=== PATIENT | male | born 1955 | race Caucasian/White ===

== ENCOUNTER 2025-06-24 15:47 | Emergency (ER) | payer OTHER, SELFPAY ==
--- OUTSIDE RECORDS SUMMARY | 2024-07-27 08:00 | XMS_ITS ---
Author Organization [facility] Address [address] [place] [address] Care Team Providers Care Rail Doweling Machine Operator Name Role Phone Nitish Alcocer MD Primary Care Provider Allergies Allergen (clinical drug ingredient) Drug/Non Drug Allergy documented on EMR Reaction Allergy Type Onset Date Status lisinopril lisinopril (uncoded) cough Allergy Active semaglutide Ozempic stomach upset Drug Allergy A ctive REASON FOR VISIT suspected prostatitis Medications Medication SIG (Take, Route, Frequency, Duration) Notes Start Date End Date Status Citalopram Hydrobromide 20 MG TAKE ONE TABLET BY MOUTH ONE TIME DAILY; Duration: 90 07/27/2024 Active Tamsulosin HCl 0.4 MG TAKE ONE CAPSULE B Y MOUTH ONE TIME DAILY; Duration: 90 07/27/2024 Active Flonase 50 MCG/DOSE 2 spray in each nostril Nasally Once a day at the bedtime; Duration: 30 days as needed 07/27/2024 Not-Taking amLODIPine Besylate 10 MG TAKE ONE TABLET BY MOUTH ONE TIME DAILY; Duration: 90 days 07/27/2024 Active Fexofenadine-Pseudoeph ed ER 60-120 MG 1 tablet as needed Orally Twice a day; Duration: 30 days as needed 07/27/2024 Not-Taking Atorvastatin Calcium 10 MG TAKE ONE TABLET BY MOUTH ONE TIME DAILY Orally Once a day; Duration: 90 days 07/27/2024 Active Ozempic (0.25 or 0.5 MG/DOSE) 2 MG/3ML 1 mg Subcutaneous weekly; Duration: 30 days 07/27/2024 Active Aspirin 81 MG 1 tablet Orally Once a day 07/27/2024 Active Valsartan 160 MG 1 tablet Orally twic e daily 07/27/2024 Active Eliquis 5 MG TAKE TWO TABLETS BY MOUTH TWICE A DAY FOR 7 DAYS THEN TAKE ONE TABLET BY MOUTH TWICE A DAY Oral; Duration: Not Available days 12/14/2023 Active Social History Tobacco Use: Social History Observation Description Date Details (start date - stop date) Never Smoker NA - NA Tobacco Use/Smoking Question Answer Notes Are you a nonsmoker Tobacco use other than smoking: Question Answer Notes Are you an other tobacco user? No Section Notes: Originally from [place]. Full-time resident of [place]. 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 Vital Signs Height 69 inches 07/27/2024 Encounters Encounter Location Date Provider Diagnosis [facility] [address] [address] 07/27/2024 Nitish Alcocer Plan Of Treatment No Information Progress Notes * ANTIONE LDOB:1955 (69 yo M)Acc No.[id number]:07/27/2024 Patient: ANTIONE WALDEN Provider: Milo Alcocer MD :1955 A ge:69 Y S ex:Male Date:07/27/2024 Address:[address] [place] [address] Structured Data:General cons ent obtained : Written; Date obtained: : 09/01/2023 Subjective: * Chief Complaints: * 1 . Suspected prostatitis. * Medical History: H ypertension, Adenomatous colon polyp - 12/06/2016, Depression, Allergic rhinitis, COLONOSCOPY - 2016 due in 2021;, Diverticulitis - 2009, Hard of hearing, Impaired fasting glucose, Obesity, Obstructive sleep apnea, Tinnitus of the lest ear. * Surgical History: c ervical fusion 07/2009, Partial (8 inches) colonectomy/complicated DD 2002, R shoulder rotator cuff 07/2015, R Rotator cuff repair 11/2017, Vasectomy . * Hospitalization/Major Diagno stic Procedure: C omplicated diverticular disease/fistula/C. difficile 2009. * Family History: M other: unknown, Diabetes, CKD, colon cancer. F ather: unknown, Hyperlipidemia. 4 daughter(s) - healthy. . Mother: diabetes, colon cancer, Kidney disease) Fathe r: hyperlipidemia 4 daughters. In good. * Social History: T obacco Use: T obacco Use/Smoking A re you a n onsmoker Tobacco use other than smoking A re you an other tobacco user? N o O riginally from [place]. Full-time resident of [place]. 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 * Medications: T aking amLODIPine Besylate 10 MG Tablet TAKE ONE TABLET BY MOUTH ONE TIME DAILY , Taking Aspirin 81 MG Tablet Chewable 1 tablet Orally Once a day , Taking Atorvastatin Calcium 10 MG Tablet TAKE ONE TABLET BY MOUTH ONE TIME DAILY Orally Once a day , Taking Citalopram Hydrobromide 20 MG Tablet TAKE ONE TABLET BY MOUTH ONE TIME DAILY , Taking Eliquis 5 MG Tablet TAKE TWO TABLETS BY MOUTH TWICE A DAY FOR 7 DAYS THEN TAKE ONE TABLET BY MOUTH TWICE A DAY Oral , Taking Ozempic (0.25 or 0.5 MG/DOSE) 2 MG/3ML Solution Pen-injector 1 mg Subcutaneous weekly , Taking Tamsulosin HCl 0.4 MG Capsule TAKE ONE CAPSULE BY MOUTH ONE TIME DAILY , Taking Valsartan 160 MG Tablet 1 tablet Orally twice daily , Not-Taking/PRN Fexofenadine-Pseudoephed ER 60-120 MG Tablet Extended Release 12 Hour 1 tablet as needed Orally Twice a day , Notes to Pharmacist: as needed, Not-Taking/PRN Flonase 50 MCG/DOSE Suspension 2 spray in each nostril Nasally Once a day at the bedtime , Notes to Pharmacist: as needed * Allergies: l isinopril: cough - Side Effects, Ozempic: stomach upset - Side Effects - Criticality High. Objective: * Vitals: H t: 69 inches. Assessment: Plan: * Treatment: * * Electronic signature of Nitish Alcocer MD, MD on 06/24/2025 at 04:50 PM EDT Sign off status: Pending * Provider: Milo Alcocer MD Date: 1 09/26/2023 Generated for Manuelito blanco/Jason/Lily on: 04:50 PM EDT
--- OUTSIDE RECORDS SUMMARY | 2024-10-10 09:00 | XMS_ITS ---
Author Organization [employer] [facility] Address [address] [place] [address] Care Team Providers Care Manager Inventory Control Name Role Phone Nitish Alcocer MD Primary Care Provider Allergies Allergen (clinical drug ingredient) Drug/Non Drug Allergy documented on EMR Reaction Allergy Type Onset Date Status lisinopril lisinopril (uncoded) cough Allergy Active semaglutide Ozempic stomach upset Drug Allergy A ctive REASON FOR VISIT Medical Clearance Medications Medication SIG (Take, Route, Frequency, Duration) Notes Start Date End Date Status Omeprazole 20 MG 1 capsule 1/2 to 1 hour before morning meal Orally Once a day; Duration: 30 day(s) 09/02/2024 Active Tamsulosin HCl 0.4 MG TAKE ONE CAPSULE B Y MOUTH ONE TIME DAILY; Duration: 90 Active Atorvastatin Calcium 10 MG TAKE ONE TABLET BY MOUTH ONE TIME DAILY; Duration: 90 Active Ozempic (0.25 or 0.5 MG/DOSE) 2 MG/3ML 0.5 mg Subcutaneous weekly; Duration: 60 days Active amLODIPine Besylate 10 MG TAKE ONE TABLET BY MOUTH ONE TIME DAILY; Duration: 90 days 07/27/2024 Active Fexofenadine-Pseudoeph ed ER 60-120 MG 1 tablet as needed Orally Twice a day; Duration: 30 days as needed 07/27/2024 Not-Taking Flonase 50 MCG/DOSE 2 spray in each nostril Nasally Once a day at the bedtime; Duration: 30 days as needed 07/27/2024 Not-Taking Eliquis 5 MG TAKE TWO TABLETS BY MOUTH TWICE A DAY FOR 7 DAYS THEN TAKE ONE TABLET BY MOUTH TWICE A DAY Oral; Duration: Not Available days 12/14/2023 Active Aspirin 81 MG 1 tablet Orally Once a day 07/27/2024 Active Citalopram Hydrobromide 20 MG TAKE ONE TABLET BY MOUTH ONE TIME DAILY; Duration: 90 07/27/2024 Active Valsartan 160 MG 1 tablet Orally twic e daily 07/27/2024 Active Encounters Encounter Location Date Provider Diagnosis [facility] [address] [place] [address] 10/10/2024 Nitish Alcocer Plan Of Treatment No Information Progress Notes * ANTIONE JONES LDOB:1955 (69 yo M)Acc No.[id number]:10/10/2024 Progress Notes Patient: ANTIONE WALDEN Provider: Milo Alcocer MD :1955 A ge:69 Y S ex:Male Date:10/10/2024 Address:[address] [place] [address], [facility] [address], [facility] Structured Data:General cons ent obtained : Written; Date obtained: : 09/01/2023 Subjective: * Chief Complaints: * 1 . Medical Clearance. * Medical History: H ypertension, Adenomatous colon polyp - 12/06/2016, Depression, Allergic rhinitis, COLONOSCOPY - 2016 due in 2021;, Diverticulitis - 2009, Hard of hearing, Impaired fasting glucose, Obesity, Obstructive sleep apnea, Tinnitus of the lest ear. * Medications: T aking amLODIPine Besylate 10 MG Tablet TAKE ONE TABLET BY MOUTH ONE TIME DAILY , Taking Aspirin 81 MG Tablet Chewable 1 tablet Orally Once a day , Taking Atorvastatin Calcium 10 MG Tablet TAKE ONE TABLET BY MOUTH ONE TIME DAILY , Taking Citalopram Hydrobromide 20 MG Tablet TAKE ONE TABLET BY MOUTH ONE TIME DAILY , Taking Eliquis 5 MG Tablet TAKE TWO TABLETS BY MOUTH TWICE A DAY FOR 7 DAYS THEN TAKE ONE TABLET BY MOUTH TWICE A DAY Oral , Taking Omeprazole 20 MG Capsule Delayed Release 1 capsule 1/2 to 1 hour before morning meal Orally Once a day , Taking Ozempic (0.25 or 0.5 MG/DOSE) 2 MG/3ML Solution Pen-injector 0.5 mg Subcutaneous weekly , Taking Tamsulosin HCl [...] Effects - Criticality High. Objective: * Vitals: Assessment: Plan: * Treatment: * * Electronic signature of Nitish Alcocer MD, MD on 06/24/2025 at 04:49 PM EDT Sign off status: Pending * Provider: Milo Alcocer MD Date: 0 10/10/2024 Generated for Manuelito blanco/Jason/Lily on: 1 04:49 PM EDT
--- OUTSIDE RECORDS SUMMARY | 2024-10-12 08:00 | XMS_ITS ---
Author Organization [facility] [employer] [facility] Address [address] [place] [address] Care Team Providers Care Electrical Engineer Name Role Phone Nitish Alcocer MD Primary Care Provider Do EFREN, Chaya Unavailable [phone] Allergies Allergen (clinical drug ingredient) Drug/Non Drug Allergy documented on EMR Reaction Allergy Type Onset Date Status lisinopril lisinopril (uncoded) cough Allergy Active semaglutide Ozempic stomach upset Drug Allergy A ctive REASON FOR VISIT preop per pcp (ekg done on 10/10) Social History Tobacco Use: Social History Observation Description Date Details (start date - stop date) Never Smoker NA - NA Tobacco Use/Smoking Question Answer Notes Are you a nonsmoker Tobacco use other than smoking: Question Answer Notes Are you an other tobacco user? No Section Notes: Originally from [place]. Full-time resident of [place]. 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 Encounters Encounter Location Date Provider Diagnosis [facility] [address] [place] [address] 10/12/2024 Chaya Do Plan Of Treatment No Information Progress Notes * ANTIONE LDOB:1955 (69 yo M)Acc No.[id number]:10/12/2024 Progress Notes Patient: Bi ANALISAANTIONE Blake Provider: EFREN Mike Do :1955 A ge:69 Y S ex:Male Date:10/12/2024 Address:[address], [address], [facility] Pcp:Nitish Alcocer MD Structured Data:General cons ent obtained : Written; Date obtained: : 09/01/2023 Subjective: * Chief Complaints: * 1 . Preop per pcp (ekg done on 10/10). * Medical History: H ypertension, Adenomatous colon [...] tobacco user? N o O riginally from [place]. Full-time resident of [place]. 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 * Allergies: l isinopril: cough - Side Effects, Ozempic: stomach upset - Side Effects - Criticality High. Objective: * Vitals: Assessment: Plan: * Treatment: * * Electronic signature of EFREN Pimentel on 06/24/2025 at 04:49 PM EDT Sign off status: Pending * Provider: EFREN Mike Do Date: 0 10/12/2024 Generated for Manuelito blanco/Jason/eTransmitting on: 1 04:49 PM EDT
--- OUTSIDE RECORDS SUMMARY | 2025-01-09 04:40 | XMS_ITS ---
Author Organization [facility] [employer] [facility] Address [address] [place] [address] Care Team Providers Care Marriage And Family Counselor Name Role Phone Carlyn KING, Nitish Primary Care Provider REASON FOR VISIT *AWV Encounters Encounter Location Date Provider Diagnosis [facility] [address] [place] [address] 01/09/2025 Nitish Alcocer Plan Of Treatment No Information Progress Notes * ANTIONE JONES LDOB:1955 (69 yo M)Acc No.[id number]:01/09/2025 Progress Note Patient: ANTIONE WALDEN Provider: Milo Alcocer MD :1955 A ge:69 Y S ex:Male Date:01/09/2025 Address:[address], [place], [place] Structured Data:General cons ent obtained : Written; Date obtained: : 09/01/2023 Subjective: * Chief Complaints: * 1 . *AWV. * Medical History: Objective: * Vitals: Assessment: Plan: * Treatment: * * Electronic signature of Nitish Alcocer MD, MD on 06/24/2025 at 04:50 PM EDT Sign off status: Pending * Provider: Milo Alcocer MD Date: 0 01/09/2025 Generated for Rafii bella/Jason/eTransmitting on: 1 04:50 PM EDT
--- OUTSIDE RECORDS SUMMARY | 2025-01-11 04:40 | XMS_ITS ---
Author Organization [facility] [employer] [facility] Address [address] [place] [address] Care Team Providers Care Dowel Maker Name Role Phone Carlyn KING, Nitish Primary Care Provider REASON FOR VISIT ref for Dr Novoa Encounters Encounter Location Date Provider Diagnosis [facility] [address] [place] [address] 01/11/2025 Nitish Alcocer Plan Of Treatment No Information Progress Notes * ANTIONE JONES LDOB:1955 (69 yo M)Acc No.[id number]:01/11/2025 Patient: ANTIONE WALDEN Provider: Milo Alcocer MD :1955 A ge:69 Y S ex:Male Date:01/11/2025 Address:[address], [address], [place], [place] Structured Data:General cons ent obtained : Written; Date obtained: : 09/01/2023 Subjective: * Chief Complaints: * [address] Novoa. * Medical History: Objective: * Vitals: Assessment: Plan: * Treatment: * * Electronic signature of Nitish Alcocer MD, on 06/24/2025 at 04:50 PM EDT Sign off status: Pending * Provider: Milo Alcocer MD Date: 0 01/11/2025 Generated for Manuelito blanco/Jason/eTransmitting on: 1 04:50 PM EDT
--- OUTSIDE RECORDS SUMMARY | 2025-06-24 15:49 | XMS_ITS | Patient Health Record ---
Author Organization [facility] Address [address] [place] [address] Support Name Relationship Address Phone Buck Carreon Guarantor Unknown [phone] Reason For Referral No Information Problems Problem Type SNOMED Code ICD Code Onset Dates Problem Status W/U Status Risk Notes Problem Sensorineural hearing loss (83421431) Hearing loss, sensorineural (389.10) 03/23/20 15 0 confirmed [id number] Problem Tinnitus (64132615) Tinnitus (388.30) 03/23/20 15 0 confirmed [id number] Problem Sensorineural hearing loss of bilateral ears (disorder) (613107041) Sensorineural hearing loss, bilateral (H90.3) 03/23/20 15 0 confirmed [id number] Problem Tinnitus of left ear (0273080612083) Tinnitus, left ear (H93.12) 03/23/20 15 0 confirmed [id number] Problem Impaired auditory discrimination (920593754) Loss Discrimination (388.43) 03/23/20 15 0 confirmed [id number] Problem Other abnormal auditory perceptions (H93.29) 03/23/20 15 0 confirmed [id number] Plan Of Treatment No Information
--- OUTSIDE RECORDS SUMMARY | 2025-06-24 15:49 | XMS_ITS | Clinical Summary ---
Author Organization [facility] Address [address] [place] [id number] Care Team Providers Care Seam Stay Stitcher Name Role Phone Unavailable Primary Care Provider Unavailabl e Allergies Active Allergy Reactions Criticality Noted Date Comments Dust Mites 07/20/2008 Lisinopril Cough 12/06/2010 Medications CPAPIndications:O SA (obstructive sleep apnea) CPAP, heated humidifier, mask, headgear, filters and tubing. For home use. Pressure: per pt Length of Need: 99 1 unit 0 5 Active Lactobacillus acidoph-L.bulgar (FLORANEX) 1 million cell tab chewable tablet Take 2 tablets by mouth 3 times daily with meals. 0 9 Active magnesium oxide (MAG-OX 400) 400 mg tablet Take 400 mg by mouth once daily. 0 9 Active hydroCHLOROthiazi de (HCTZ) 25 mg tabletIndications :Essential hypertension TAKE ONE TABLET BY MOUTH DAILY 90 tablet 2 9 Active amLODIPine (NORVASC) 10 mg tabletIndications :Essential hypertension TAKE 1 TABLET BY MOUTH EVERY DAY 14 tablet 1 Active citalopram (CELEXA) 20 mg tabletIndications :Generalized anxiety disorder TAKE 1 TABLET BY MOUTH EVERY DAY IN THE MORNING 90 tablet 1 Active potassium chloride (KLOR-CON M20) 20 mEq Extended-Release tabletIndications :Hypokalemia TAKE 1 TABLET BY MOUTH EVERY DAY WITH FOOD 30 Tablet 1 Active Active Problems Problem Noted Date Diagnosed Date Morbid obesity with BMI of 40.0-44.9, adult 10/01 Prediabetes 07/07/2017 Adenomatous colon polyp 12/16/2016 Overview (12/16/2016): Colonoscopy 11/2016 polyp repeat in 5 years Vitamin D insufficiency 07/16/2016 Primary osteoarthritis involving multiple joints 06/12/2015 Unspecified essential hypertension 02/19/2011 Allergy, unspecified not elsewhere classified Generalized anxiety disorder 10/04/2007 TERRELL (obstructive sleep apnea) Overview (10/19/2017): CPAP Resolved Problems Problem Noted Date Diagnosed Date Resolved Date Obesity, unspecified 02/19/2011 018 Immunizations Immunization Administration Dates Next Due Influenza, IIV3 (Age 6-35 mos) 06/14/2011,2008 Influenza, IIV3 (Age >=3 years) 07/22/20 13,07/07/2012,05/31/2012,2010 Influenza, IIV4 05/25/2019, 8,05/14/2016,2014,08/02/2014 Influenza, IIV4 (=>6mos) MDV 07/07/2017 Pneumococcal conj 13-Valent (Prevnar 13) 06/29/2019 Td (Age >=7 Years) 08/31/2000 Tdap 12/12/2011 Zoster (Shingrix-RZV, recombinant) 05/25/2019, Zoster (Zostavax-ZVL, live) 06/12/2015 Family History Medical History Relation Name Comments Hyperlipidemia Father Stroke Father Cancer-colon Mother Diabetes Mother Kidney disease Mother end stage on dialysis Anesthesia Problem Neg. No Known Problems Sister 1 No Known Problems Sister 2 Relation Name Status Comments Father Mother Neg. Sister 1 Alive Sister 2 Alive Social History Tobacco Use Types Packs/Day Years Used Date Smoking Tobacco: Never Smokeless Tobacco: Never Tobacco Cessation:Counseling Given: Yes Alcohol Use Standard Drinks/Week Comments Not Currently 0 (1 standard drink = 0.6 oz pur e alcohol) PHQ-2 Answer Date Recorded PHQ-2 Score 0 10/30/2018 Social Connections Answer Date Recorded Frequency of Communication with Friends and Fami ly Not on file 08/31/2021 Financial Resource Strain Answer Date R ecorded Difficulty of Paying Living Expenses Not on file 08/31/2021 Difficulty of Paying Living Expenses Not on file 08/31/2021 Sex and Gender Information Value Date Recorded Sex Assigned at Not on file Legal Sex Male 6:16 AM NATURAL FABRICATOR Gender Identity Not on file Sexual Orientation Not on file 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 Not on file Not on file Not on file Obstetrics History Last Filed Vital Signs Vital Sign Reading Time Taken Comments Blood Pressure 120/72 08/10/2019 7:59 AM NATURAL FABRICATOR tow er Pulse 48 08/10/2019 7:59 AM NATURAL FABRICATOR Temperature 36.8 C (98.3 F) 08/10/2019 7:59 AM NATURAL FABRICATOR Respiratory Rate 14 06/22/2018 8:19 AM CDT Oxygen Saturation 100% 08/10/2019 7:59 AM NATURAL FABRICATOR Inhaled Oxygen Concentration - - Weight 127 kg (280 lb) 08/10/2019 7:59 AM NATURAL FABRICATOR Height 177.5 cm (5' 9.88) 08/10/2019 7:59 AM CS T Body Mass Index 40.31 08/10/2019 7:59 AM NATURAL FABRICATOR Plan of Treatment Health Maintenance Due Date Last Done Comments Depression screening for age 12+ 05/26/2020 05/26/2019, 05/25/2019, 05/25/2019, Additional history exists Pneumococcal series for age 50+ (2 of 2 - PCV20 or PCV21) 06/29/2020 06/29/2019 BMI (ht and wt on same day) for age 18+ 08/10/2020 08/10/2019, 07/18/2019, 07/06/2019, Additional history exists Tetanus booster 12/11/2021 12/12/2011, 08/31/2000 Colonoscopy through age 75 12/12/202112/12, 12/12/2016, 03/29/2010 Lipids for age 45-75 06/22/2023 06/22/2018, 07/07/2017, 07/16/2016, Additional history exists Influenza Vaccine (#1) 2025 9, 07/23/2018, 07/07/2017, Additional history exists RSV vaccine for adults or (1 - 1-dose 75+ series) 2029 Hepatitis C screening for age 18-79 Completed 07/16/2016 Zoster (shingles) series for age 50+ Completed 05/25/2019, 01/04/2019, 06/12/2015 Hepatitis B series for 19+ Aged Out N o longer eligible based on patient's age to complete this topic Medical Devices Implanted Type Area Weekend Receptionist Device Identifier Shelf Expiration Date Model / Serial / Lot Screw 4.2 X 14mm - [id number] Implanted:Qty: 5 on 06/29/[address] [facility] Neuro Implants N/A: Cervical Vertebrae SULZER SPINETECH [id number] .002# / / [id number] [id number] Canclls [id number] Roland [employer] Allograft [[id number]] Implanted:Qty: 1 on 06/29/[address] [facility] Explanted:at [facility] (Quantity not on file) Spine SOFAMOR DANEK 11/24/2009 [id number]# / [id number] / [id number] ck Canclls [id number] Asr [employer] Allograft [[id number]] Implanted:Qty: 1 on 06/29/[address] [facility] Explanted:at [facility] (Quantity not on file) Spine SOFAMOR DANEK 11/28/2011 [id number]# / [id number] / Plate Cerv 40mm 2 Lvl Trinica Select - [id number] Implanted:Qty: 1 on 06/29/[address] [facility] N/A: Cervical Vertebrae SULZER SPINETECH [id number] .002# / / Screw 4.6x14mm [id number] - [id number] Implanted:Qty: 1 on 06/29/[address] [facility] N/A: Cervical Vertebrae SULZER SPINETECH [id number] .002# / / Procedures Procedure Name Priority Date/Time Associated Diagnosis Comments LIPID PANEL W REFLEX MEASURED LDL Routine 06/22/2018 8:55 AM CDT Screening cholesterol level COLONOSCOPY 12/12/2016 7:56 AM CDT ANTI HCV Routine 07/16/2016 10:26 AM NATURAL FABRICATOR Need for hepatitis C screening test from Last 3 Months or Most Recently Relevant to Health Maintenance Results * LIPID PANEL W REFLEX MEASURED LDL (06/22/2018 8:55 AM CDT) CHOLESTEROL,TOTAL 185 100 - 199 mg/dL 06/22/2018 2:46 PM CDT [facility] TRIGLYCERIDES 119 <150 mg/dL 06/22/2018 2:46 PM CDT [facility] HDL CHOLESTEROL 49 >40 mg/dL 8 2:46 PM CDT [facility] NON-HDL CHOLESTEROL 136 <145 mg/dl 06/22/2018 2:46 PM CDT [facility] CHOL/HDL RATIO 3.78 <4.50 06/22/2018 2:46 PM CDT [facility] LDL CHOLESTEROL 112 <=130 mg/dL 06/22/2018 2:46 PM CDT [facility] PROVIDER ORDERED STATUS RANDOM 06/22/2018 2:46 PM CDT [facility] Blood BLOOD SPECIMEN / Unknown Venipuncture / Unknown 06/22/2018 8:55 AM CDT 06/22/2018 8:55 AM CDT us Ale SCHWARTZ CHEMISTRY Final Result [facility] [address] [place] [address], [place] * COLONOSCOPY (12/12/2016 7:56 AM CDT) 12/12/2016 7:56 AM CDT Narrative Transcriptions Dudley Burns MD - 12/12/2016 8:37 AM CDT Patient Name: Buck Carreon Procedure Date: 12/12/2016 Gender: Male Date of : 1955 Admit Type: Outpatient Procedure: Colonoscopy Proceduralist: Dudley Burns MD , Reanna Brooke (Nurse) Referring MD: Markus Vela Indications/Pre-Op Diagnosis: Screening in patient at increased risk: Colorectal cancer in mother before age 60,Last colonoscopy: February 2010 Medications: Fentanyl 100 micrograms IV, Midazolam 2 mgIV, The level of sedation administered wasmoderate Procedure Description: The patient had risks, benefits and alternatives explained to andgave informed consent. The patient had a stable cardiopulmonary status and judged an adequate candidate for conscious sedation. The [id number] was passed through the anus and advanced tothe cecum, identified by appendiceal orifice and ileocecal valve. The colonoscopy was performed without difficulty. The patient toleratedthe procedure well. The quality of the bowel preparation was excellent.The ileocecal valve, appendiceal orifice, and rectum were photographed. Complications: No immediate complications. Estimated Blood Loss & Specimen: Estimated blood loss: none. Specimen collected - Yes and sent to Laboratory Findings: The perianal and digital rectal examinations were normal. A 2 mm polyp was found in the appendiceal orifice. The polyp was sessile. The polyp was removed with a cold snare. Resection and retrieval were complete. The exam was otherwise without abnormality on direct and retroflexion views. Impressions/Post-Op Diagnosis: - One 2 mm polyp at the appendiceal orifice, removed with a coldsnare. Resected and retrieved. - The examination was otherwise normal on direct and retroflexionviews. Recommendation: - Patient has a contact number available for emergencies. The signsand symptoms of potential delayed complications were discussed with the patient. Return to normal activities tomorrow. Written discharge instructions were provided to the patient. - Resume previous diet. - Continue present medications. - Await pathology results. - Repeat colonoscopy in 5 years. Moderate Sedation: Moderate (conscious) sedation was administered by the endoscopy nurse and supervised by the endoscopist. The following parameters were monitored: oxygen saturation, heart rate, respiratory rate, blood pressure, adequacy of pulmonary ventilation and reponse to care. Please refer to the patien'ts medical record flowsheets and nursing notes for moderate sedation details. Total physician intraservice time was 19 minutes. Dudley Burns MD 12/12/2016 8:36:46 AM This report has been signed electronically. Note Initiated On: 12/12/2016 7:56 AM Procedure Code(s): --- Professional --- 13037, Colonoscopy, flexible; with removalof tumor(s), polyp(s), or other lesion(s) bysnare technique Diagnosis Code(s): --- Professional --- Z80.0, Family history of malignant neoplasmof digestive organs D12.1, Benign neoplasm of appendix CPT copyright 2016 [employer]. All rights reserved. The codes documented in this report are preliminary and upon registered health nurse reviewmay be revised to meet current compliance requirements. Scope In: 8:08:05 AM Scope Withdrawal Time 0 hours 10 minutes 17 seconds Scope Out: 8:24:00 AM us Dudley Burns MD PROCEDURE ORD Final Res ult * ANTI HCV (07/16/2016 10:26 AM NATURAL FABRICATOR) HEPATITIS C ANTIBODY Non-Reacti ve Non-Reacti ve 07/16/2016 6:21 PM NATURAL FABRICATOR [facility] Blood BLOOD SPECIMEN / Unknown Venipuncture / Unknown 07/16/2016 10:26 AM NATURAL FABRICATOR 07/16/2016 10:26 AM NATURAL FABRICATOR Narrative [facility] - 07/16/2016 6:21 PM NATURAL FABRICATOR Antibodies to HCV not detected; does not exclude the possibility of exposure to HCV. us Markus Vela MD SEND OUTS Final Result [facility] [address] [place] [address], [place] from Last 3 Months or Most Recently Relevant to Health Maintenance Insurance [facility] Advance Directives * Full Code (Latest Code Status on File) Date Activated Date Inactivated Comments 06/29/2009 9:14 PM 06/30/2009 3:18 PM * Full Code Date Activated Date Inactivated Comments 06/29/2009 12:20 PM 06/29/2009 9:14 PM
--- OUTSIDE RECORDS SUMMARY | 2025-06-24 15:49 | XMS_ITS | Clinical Summary ---
Author Organization [facility] Address [address] [place] [address] Care Team Providers Care Yard Associate Name Role Phone Unassigned, Provider Primary Care Provider Unava ilable Source Comments You are receiving this document as you are listed as the primary care provider,follow-up provider, or the patient has been referred to you for consultation.This is in compliance with the Medicare and[facility] EHR Incentive Program,which states Providers who transition their patient to another setting of careor provider of care or refers their patient to another provider of care shouldprovide summary care record for each transition of care or referral. [facility] Analysis Allergies No known active allergies Medications cyclobenzaprine (FLEXERIL) 10 MG tablet Take 1 Tablet by mouth three times a day as needed for Muscle Spasms. 20 Tablet 03/23/2020 Active Social History Tobacco Use Types Packs/Day Years Used Date Smoking Tobacco: Former Cigarettes Q uit: 03/23/1977 Smokeless Tobacco: Never Alcohol Use Standard Drinks/Week Comments Not Asked 2 (1 standard drink = 0.6 oz pur e alcohol) PHQ-2 Answer Date Recorded PHQ-2 Score 0 03/23/2020 Sex and Gender Information Value Date Recorded Sex Assigned at Not on file Legal Sex Male 9:33 AM CDT Gender Identity Not on file Sexual Orientation Not on file Last Filed Vital Signs Vital Sign Reading Time Taken Comments Blood Pressure 142/83 03/23/2020 10:30 AM CDT Pulse 55 03/23/2020 10:30 AM CDT Temperature 36.8 C (98.3 F) 03/23/2020 10:30 AM CDT Respiratory Rate 16 03/23/2020 10:30 AM CDT Oxygen Saturation - - Inhaled Oxygen Concentration - - Weight 137 kg (302 lb) 03/23/2020 10:30 AM CDT Height - - Body Mass Index - - Plan of Treatment Health Maintenance Due Date Last Done Comments Colon Cancer Screening Plan Due 1955 Hep C Screening (Preventive Services) 1955 Medicare Welcome Visit 1955 Cholesterol 1989 Pneumococcal Vaccine 50+ Yrs (2 of 2 - PCV20 or PCV21) 06/29/2020 06/29/2019 DTaP/Tdap/Td Vaccine (2 - Tdap) 12/11/2021 12/12/2011 COVID-19 Vaccine (1 - 2023- season) 2025 Influenza Vaccine (#1) 2025 9, 07/23/2018, 07/07/2017, Additional history exists RSV Vaccine (1 - 1-dose 75+ series) 2029 Zoster/Shingles Vaccine Completed 05/25/20 19, 01/04/2019, 06/12/2015 HepA Vaccine Aged Out No longer eligi ble based on patient's age to complete this topic HepB Vaccine Aged Out No longer eligi ble based on patient's age to complete this topic Hib Vaccine Aged Out No longer eligi ble based on patient's age to complete this topic IPV (Polio) Vaccine Aged Out No longe r eligible based on patient's age to complete this topic MCV4 Vaccine Aged Out No longer eligi ble based on patient's age to complete this topic Meningococcal B Vaccine Aged Out No l onger eligible based on patient's age to complete this topic Insurance BS MEDICARE ADVANTAGE Care Teams Yard Associate Relationship Specialty Start Date End Date Unassigned, Provider [address] [place] [id number] PCP - General Unknown Physician Specialty 03/23/20
--- OUTSIDE RECORDS SUMMARY | 2025-06-24 15:50 | XMS_ITS | Patient Health Record ---
Author Organization [facility] Address [address] [place] [address] Care Team Providers Care Night Filler Name Role Phone Nitish Alcocer MD Primary Care Provider Do PA, Chaya Unavailable [phone] Allergies Allergen (clinical drug ingredient) Drug/Non Drug Allergy documented on EMR Reaction Allergy Type Onset Date Status lisinopril lisinopril (uncoded) cough Allergy Active semaglutide Ozempic stomach upset Drug Allergy A ctive Results Component Value Reference Range Notes TSH Rfx on Abnormal to Free T4 Reviewed date:01/06/2025 05:16:31 PM Interpretation: Performing Lab:[facility] [address] [id number], Phone - [phone], [facility] Notes/Report: Test(s) 737808-Xarupaodzmwi, Total, LC/MS was developed and its performance characteristics determined by [facility]. It has not been cleared or approved by the Food and Drug Administration. TSH 2.920 0.450-4.500 uIU/mL PSA Total (Reflex To Free) Reviewed date:01/06/2025 05:16:31 PM Interpretation: Performing Lab:[facility] [address] [id number], Phone - [phone], Director - MDR[facility] Notes/Report: Test(s) 228490-Qovzastrcohh, Total, LC/MS was developed and its performance characteristics determined by [facility]. It has not been cleared or approved by the Food and Drug Administration. Prostate Specific Ag 2.2 0.0-4.0 ng/mL Faye ECLIA methodology. Values obtained with different assay methods or kits cannot be used . interchangeably. Results cannot be interpreted as absolute evidence PSA value 0.2 ng/mL or greater followed by a subsequent confirmatory of the presence or absence of malignant disease. PSA value 0.2 ng/mL or greater. decrease and remain at undetectable levels after radical According to the [place] [employer], Serum PSA should prostatectomy. The AUA defines biochemical recurrence as an initial Reflex Criteria The percent free PSA is performed on a reflex basis only when the total PSA is between 4.0 and 10.0 ng/mL. Lipid Panel With LDL/HDL Rat io Reviewed date:01/06/2025 05:16:31 PM Interpretation: Performing Lab:[facility] [address] [id number], Phone - [phone], Director - MDR[facility]dollar Notes/Report: Test(s) 046055-Hoblfcqqioqq, Total, LC/MS was developed and its performance characteristics determined by [facility]. It has not been cleared or approved by the Food and Drug Administration. Cholesterol, Total 150 100-199 mg/dL Triglycerides 166 0-149 mg/dL HDL Cholesterol 44 >39 mg/dL VLDL Cholesterol Darryl 28 5-40 mg/dL LDL Chol Calc ([facility]) 78 0-99 mg/dL LDL/HDL Ratio 1.8 0.0-3.6 ratio LDL/HDL Ratio 3X Avg.Risk 8.0 6.1 1/2 Avg.Risk 1.0 1.5 Men Women 2X Avg.Risk 6.2 5.0 Avg.Risk 3.6 3.2 Comp. Metabolic Panel (14) Reviewed date:01/06/2025 05:16:31 PM Interpretation: Performing Lab:[facility] [address] [id number], Phone - [phone], Director - MDR[facility] Notes/Report: Test(s) [id number]-Jjylmjdamdkl, Total, LC/MS was developed and its performance characteristics determined by [facility]. It has not been cleared or approved by the Food and Drug Administration. Glucose 97 70-99 mg/dL BUN 12 8-27 mg/dL BUN/Creatinine Ratio 11 10-24 Sodium 143 134-144 mmol/L Potassium 4.3 3.5-5.2 mmol/L Chloride 106 96-106 mmol/L Carbon Dioxide, Total 23 20-29 mmol/L Calcium 9.3 8.6-10.2 mg/dL Protein, Total 6.5 6.0-8.5 g/dL Albumin 3.9 3.9-4.9 g/dL Globulin, Total 2.6 1.5-4.5 g/dL Bilirubin, Total 0.5 0.0-1.2 mg/dL Alkaline Phosphatase 74 44-121 IU/L AST (SGOT) 14 0-40 IU/L ALT (SGPT) 16 0-44 IU/L Testosterone, Free+Total LC/ MS Reviewed date:01/06/2025 05:16:31 PM Interpretation: Performing Lab:[facility] [id number], Phone - [phone], Director - [facility] Notes/Report: Test(s) [id number]-Gjecnwvickpt, Total, LC/MS was developed and its performance characteristics determined by [facility]. It has not been cleared or approved by the Food and Drug Administration. Testosterone, Total, LC/MS 438.6 264.0-916.0 ng /dL This [facility] LC/MS-MS method is currently certified by the CDC (BMI <30) between 19 and 39 years old. Rossi et.al. JCEM interval is based on a population of healthy nonobese males Hormone Standardization Program (HoSt). Adult male reference 2017,102;3892-5235. PMID: 71749005. Free Testosterone(Direct) 5.0 6.6-18.1 pg/mL Hemoglobin A1c Reviewed date:01/06/2025 05:16:31 PM Interpretation: Performing Lab:[facility] [address] [id number], Phone - [phone], Director - [facility] Notes/Report: Test(s) 025971-Toppjtgowqsx, Total, LC/MS was developed and its performance characteristics determined by [facility]. It has not been cleared or approved by the Food and Drug Administration. Hemoglobin A1c 5.9 4.8-5.6 % Prediabetes: 5.7 - 6.4 Glycemic control for adults with diabetes: <7.0 Diabetes: >6.4 . CBC, Platelet, No Differenti al Reviewed date:01/06/2025 05:16:31 PM Interpretation: Performing Lab:[facility] [id number], Phone - [phone], Director - Alison Notes/Report: Test(s) 214104-Lqkqeeofdotn, Total, LC/MS was developed and its performance characteristics determined by [facility]. It has not been cleared or approved by the Food and Drug Administration. WBC 8.9 3.4-10.8 x10E3/uL RBC 4.94 4.14-5.80 x10E6/uL Hemoglobin 14.7 13.0-17.7 g/dL Hematocrit 44.7 37.5-51.0 % MCV 91 79-97 fL MCH 29.8 26.6-33.0 pg MCHC 32.9 31.5-35.7 g/dL RDW 13.4 11.6-15.4 % Platelets 314 150-450 x10E3/uL IH Electrocardiogram (EKG) Reviewed date:10/11/2024 02:10:44 PM Interpretation: Performing Lab: Notes/Report: Comp. Metabolic Panel (14) Reviewed date:07/21/2024 08:12:33 AM Interpretation: Performing Lab:[address] [id number], Phone - [phone], Director - Charly Notes/Report: Glucose 103 70-99 mg/dL BUN 18 8-27 mg/dL Creatinine 1.07 0.76-1.27 mg/dL eGFR 75 >59 mL/min/1.73 BUN/Creatinine Ratio 17 10-24 Sodium 143 134-144 mmol/L Potassium 4.2 3.5-5.2 mmol/L Chloride 107 96-106 mmol/L Carbon Dioxide, Total 23 20-29 mmol/L Calcium 9.3 8.6-10.2 mg/dL Protein, Total 6.6 6.0-8.5 g/dL Albumin 3.9 3.9-4.9 g/dL Globulin, Total 2.7 1.5-4.5 g/dL Bilirubin, Total 0.5 0.0-1.2 mg/dL Alkaline Phosphatase 75 44-121 IU/L AST (SGOT) 16 0-40 IU/L ALT (SGPT) 19 0-44 IU/L Lipid Panel With LDL/HDL Rat io Reviewed date:07/21/2024 08:12:33 AM Interpretation: Performing Lab:[facility] [address] [id number], Phone - [phone], Director - Charly Notes/Report: Cholesterol, Total 143 100-199 mg/dL Triglycerides 109 0-149 mg/dL HDL Cholesterol 47 >39 mg/dL VLDL Cholesterol Darryl 20 5-40 mg/dL LDL Chol Calc (NIH) 76 0-99 mg/dL LDL/HDL Ratio 1.6 0.0-3.6 ratio 2X Avg.Risk 6.2 5.0 Men Women Avg.Risk 3.6 3.2 1/2 Avg.Risk 1.0 1.5 LDL/HDL Ratio 3X Avg.Risk 8.0 6.1 CBC with platelets and diffe rential Reviewed date:07/21/2024 08:12:33 AM Interpretation: Performing Lab:[facility] [place], [address] [place] [id number], Phone - [phone], Director - Charly Notes/Report: WBC 8.1 3.4-10.8 x10E3/uL Effective August 01, 2024 profile [id number] WBC will be made non-orderable as a stand-alone order code. RBC 5.02 4.14-5.80 x10E6/uL Hemoglobin 14.4 13.0-17.7 g/dL Hematocrit 44.6 37.5-51.0 % MCV 89 79-97 fL MCH 28.7 26.6-33.0 pg MCHC 32.3 31.5-35.7 g/dL RDW 13.0 11.6-15.4 % Platelets 333 150-450 x10E3/uL Neutrophils 48 Not Estab. % Lymphs 39 Not Estab. % Monocytes 8 Not Estab. % Eos 3 Not Estab. % Basos 1 Not Estab. % Neutrophils (Absolute) 3.9 1.4-7.0 x10E3/uL Lymphs (Absolute) 3.1 0.7-3.1 x10E3/uL Monocytes(Absolute) 0.7 0.1-0.9 x10E3/uL Eos (Absolute) 0.2 0.0-0.4 x10E3/uL Baso (Absolute) 0.1 0.0-0.2 x10E3/uL Immature Granulocytes 1 Not Estab. % Immature Grans (Abs) 0.0 0.0-0.1 x10E3/uL Hemoglobin A1c Reviewed date:07/21/2024 08:12:32 AM Interpretation: Performing Lab:[facility] [address] [id number], Phone - [phone], Director - Charly Notes/Report: Hemoglobin A1c 6.7 4.8-5.6 % . Glycemic control for adults with diabetes: <7.0 Diabetes: >6.4 Prediabetes: 5.7 - 6.4 Kidney Profile Reviewed date:01/06/2025 05:16:31 PM Interpretation: Performing Lab:[facility] [address] [id number], Phone - [phone], Director - MAKENNAichcecilollar Notes/Report: Test(s) [id number]-Xzmomoqlxqxw, Total, LC/MS was developed and its performance characteristics determined by [facility]. It has not been cleared or approved by the Food and Drug Administration. Creatinine 1.09 0.76-1.27 mg/dL eGFR 73 >59 mL/min/1.73 Comment: as an estimated glomerular filtration rate (eGFR) <60 mL/min/1.73 m2 and/or urine albumin/creatinine ratio >30 mg/g present for more than three months. Current medical guidelines define chronic kidney disease (CKD) Creatinine, Urine 177.9 Not Estab. mg/dL Albumin, Urine 6.2 Not Estab. ug/mL Alb/Creat Ratio 3 0-29 mg/g creat Severely increased: >300 Normal: 0 - 29 Moderately increased: 30 - 300 Reason For Referral Reason ov's [phone] Diagnosis 1 DVT, lower extremity , distal (I82.4Z9) Referral Organization [facility] Referring Provider First Name Nitish Referring Provider Last Name Wandaefraínriley Referring Provider Speciality Internal M edicine Referred Provider [facility], . Referred Provider Specialty Hematology/O ncology Procedure 1 EST. PT. 25 MIN. MOD ERATE (35272) General Notes eclinicalworks, supp ort 07/01/2024 09:06:20 AM>, Authorization is based on information provided; it is not a guarantee of payment. Billed services are subject to medical necessity, appropriate setting, billing/coding, plan limits, eligibility at time of service. Verify benefits online or call Customer Service., Kaylee Grover 12/30/2024 02:26:06 PM >REFERRAL WAS NOT ADDRESSED DUE TO AUTH TYPE IS BLANK Referral Priority Routine Referral Appointment Date 06/30/2024 Reason facility [phone] Diagnosis 1 DVT, lower extremity , distal (I82.4Z9) Referral Organization [facility] Referring Provider First Name [place] Referring Provider Last Name [facility] Referring Provider Speciality Internal [facility] Referred Provider [facility], . Referred Provider Specialty Hospital Procedure 1 HOS OP CLIN VISIT SESS & MGMT PT (G0463) General Notes eclinicalworks, supp ort 07/01/2024 09:06:40 AM>, Authorization is based on information provided; it is not a guarantee of payment. Billed services are subject to medical necessity, appropriate setting, billing/coding, plan limits, eligibility at time of service. Verify benefits online or call Customer Service. Referral Priority Routine Reason 6 MO OV / EKG Diagnosis 1 HTN (hypertension), benign (I10) Referral Organization [facility] Referring Provider First Name [place] Referring Provider Last Name [facility] Referring Provider Speciality [facility], . Referred Provider Specialty Cardiology Procedure 1 EST. PT. 25 MIN. MOD ERATE (65219) Procedure 2 EKG with interpretat ion (15728) General Notes eclinicalworks, supp ort 10/18/2024 13:46:00 PM>, Authorization is based on information provided; it is not a guarantee of payment. Billed services are subject to medical necessity, appropriate setting, billing/coding, plan limits, eligibility at time of service. 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 PT. 25 MIN. MOD ERATE (50209) General Notes sylvaininicalworks, supp ort 09/29/2024 15:05:00 PM>, Authorization is based on information provided; it is not a guarantee of payment. Billed services are subject to medical necessity, appropriate setting, billing/coding, plan limits, eligibility at time of service. Verify benefits online or call Customer Service. Referral Priority Routine Reason COLONOSCOPY LYDIA RAUSCH - [phone] Diagnosis 1 Screening for colon cancer (Z12.11) Diagnosis 2 Family history of nenita wel cancer (Z80.0) Referral Organization [facility] Referring Provider First Name Nitish Referring Provider Last Name Carlyn Referring Provider Speciality Internal [facility] Referred Provider [facility], Referred Provider Specialty Gastroentero logy Procedure 1 Diagnostic colonosco py (61109) Procedure 2 Colonoscopy and biop sy (62675) Procedure 3 Lesion remove colono scopy (58339) Procedure 4 Lesion removal colon oscopy (47353) Procedure 5 COLONOSCOPY W/RESECT ION (78102) Procedure 6 COLONOSCOPY W/ABLATI ON (21725) Procedure 7 COLONOSCOPY W/BAND L IGATION (13871) Procedure 8 COLOREC CANCR SCR; C OLNSCPY HI RISK (G0105) Procedure 9 COLOREC CNCR SCR;COL NSCPY NO HI RSK (G0121) General Notes sylvaininicalworks, supp ort 09/29/2024 14:53:40 PM>, Incorrect number of visits, Procedure quantity value must be between 1 and 99, eclinicalworks, support 09/29/2024 14:59:00 PM>, Authorization is based on information provided; it is not a guarantee of payment. Billed services are subject to medical necessity, appropriate setting, billing/coding, plan limits, eligibility at time of service. Verify benefits online or call Customer Service. Referral Priority Routine Reason REQUESTED Diagnosis 1 Arthritis of right k nee (M17.11) Diagnosis 2 Arthritis of both kn ees (M17.0) Referral Organization [facility] Referring Provider First Name Nitish Referring Provider Last Name Naye Referring Provider Speciality Internal edicine Referred Provider [facility], . Referred Provider Specialty Orthopedic Procedure 1 PT EVAL LOW COMPLEX 20 MIN (49599) Procedure 2 PT EVAL MOD COMPLEX 30 MIN (63556) Procedure 3 PT EVAL HIGH COMPLEX 45 MIN (56305) Procedure 4 PT RE-EVAL EST PLAN CARE (36869) Procedure 5 Therapeutic exercise s (68084) Procedure 6 Manual therapy 1> re gions (92178) Procedure 7 NEUROMUSCULAR REEDUC ATION (08703) Procedure 8 ELECTRIC STIMULATION THERAPY (58986) Procedure 9 Therapeutic activiti es (31418) Procedure 10 Self care mngment tr flores (78716) General Notes eclinicalworks, supp ort 09/21/2024 16:08:40 PM>, Authorization is based on information provided; it is not a guarantee of payment. Billed services are subject to medical necessity, appropriate setting, billing/coding, plan limits, eligibility at time of service. Verify benefits online or call Customer Service. Referral Priority Routine Referral Appointment Date 12/28/2024 Reason Evaluation of manage ment of osteoarthritis of the right knee Diagnosis 1 Arthritis of knee, r ight (M17.11) Referral Organization [facility] Referring Provider First Name Nitish Referring Provider Last Name Naye Referring Provider Speciality Internal [facility] Referred Provider [facility], . Referred Provider Specialty Orthopedic Procedure 1 Office Visit, New Pt ., Level 4 (45 min) (93876) Procedure 2 EST. PT. 25 MIN. MOD ERATE (90824) Procedure 3 Officeoutpatient vis it est (90503) Procedure 4 RT X-ray exam knee 4 or more (18006) Procedure 5 Radiologic examinati on, hip, right, with pelvis when performed; 1 view (07957) Procedure 6 RT RAD EXAM ANKLE AN TEROPOSTERIOR & LAT VIEWS (96347) Procedure 7 Draininject jointbur sa (51167) Procedure 8 Kenalog-10 MG (J3301 ) Procedure 9 Celestone (Betametha sone Acetate and Sodium Phosphate) 3 MG (J0702) General Notes eclinicalworks, supp ort 08/30/2024 12:52:40 PM>, Authorization is based on information provided; it is not a guarantee of payment. Billed services are subject to medical necessity, appropriate setting, billing/coding, plan limits, eligibility at time of service. Verify benefits online or call Customer Service. Referral Priority Routine Referral Appointment Date 09/20/2024 Reason OV 01/10/2025 Diagnosis 1 TRERELL (obstructive sle ep apnea) (G47.33) Referral Organization [facility] Referring Provider First Name [place] Referring Provider Last Name [facility] Referring Provider Speciality Internal [facility] Referred Provider [facility] Referred Provider Specialty Sleep Study Procedure 1 EST. PT. 25 MIN. MOD ERATE (72199) General Notes eclinicalworks, supp ort 01/11/2025 08:13:00 AM>, Authorization is based on information provided; it is not a guarantee of payment. Billed services are subject to medical necessity, appropriate setting, billing/coding, plan limits, eligibility at time of service. Verify benefits online or call Customer Service. 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 PT. 25 MIN. MOD ERATE (82813) Procedure 2 HOS OP CLIN VISIT SESS & MGMT PT (G0463) Procedure 3 VENIPUNCT, ROUTINE-I n House (82408) Procedure 4 Comprehen metabolic panel (48251) Procedure 5 Complete cbc wauto d iff wbc (86957) Procedure 6 Bl smear wdiff wbc c ount (93647) Procedure 7 DRAW BLOOD OFF VENOU S DEVICE (98767) Procedure 8 Immunoassay tumor ca 125 (36663) General Notes sylvaininicalworks, supp ort 01/02/2025 09:03:00 AM>, Specialist Phone Number not found. Please verify Phone, Specialist Fax not found. Please verify Fax, Specialist Record not found. Referral Priority Routine Reason ECHO PLEASE FORWAR D A COPY OF THE RESULTS TO DR VERDUZCO Diagnosis 1 Bilateral pulmonary embolism (I26.99) Diagnosis 2 Ac DVT/emb distl low ext (I82.4Z9) Referral Organization [facility] Referring Provider First Name Nitish Referring Provider Last Name Carlyn Referring Provider Speciality Internal M edicine Referred Provider [facility], . Referred Provider Specialty Diagnostic T esting Procedure 1 Tte wdoppler complet e (16486) General Notes nick, supp ort 12/05/2024 08:00:40 AM>, Incorrect number of visits, Procedure quantity value must be between 1 and 99, nick, support 12/05/2024 15:26:40 PM>, Authorization is based on information provided; it is not a guarantee of payment. Billed services are subject to medical necessity, appropriate setting, billing/coding, plan limits, eligibility at time of service. Verify benefits online or call Customer Service. Referral Priority Routine Referral Appointment Date 12/05/2024 Medications Medication SIG (Take, Route, Frequency, Duration) Notes Start Date End Date Status amLODIPine Besylate 10 MG TAKE ONE TABLET BY MOUTH ONE TIME DAILY; Duration: 90 days Active Valsartan 160 MG 1 tablet Orally twice daily; Duration: 90 days 07/27/2024 Active Omeprazole 20 MG 1 capsule 1/2 to 1 hour before morning meal Orally Once a day; Duration: 30 day(s) Active Ozempic (0.25 or 0.5 MG/DOSE) 2 MG/3ML 0.5 mg Subcutaneous weekly; Duration: 60 days Active Atorvastatin Calcium 10 MG TAKE ONE TABLET BY MOUTH ONE TIME DAILY; Duration: 90 10/10/2024 Active Citalopram Hydrobromide 20 MG TAKE ONE TABLET BY MOUTH ONE TIME DAILY; Duration: 90 Active Fexofenadine-Pseudo ephed ER 60-120 MG 1 tablet as needed Orally Twice a day; Duration: 30 days as needed 07/27/2024 Not-Taking Flonase 50 MCG/DOSE 2 spray in each nostril Nasally Once a day at the bedtime; Duration: 30 days as needed 07/27/2024 Not-Taking Tamsulosin HCl 0.4 MG TAKE ONE CAPSULE BY MOUTH ONE TIME DAILY; Duration: 90 Patient needs to make an appointment Active Eliquis 5 MG TAKE TWO TABLETS BY MOUTH TWICE A DAY FOR 7 DAYS THEN TAKE ONE TABLET BY MOUTH TWICE A DAY Oral; Duration: Not Available days 12/14/2023 Active Aspirin 81 MG 1 tablet Orally Once a day 07/27/2024 Active Immunizations Vaccine Route Administration Date Status Comme nts COVID-19 Vaccine Moderna 1st dose Unknown 12/12/2020 Administered COVID-19 Vaccine Moderna 2nd dose Unknown 01/14/2021 Administered COVID-19 Vaccine Moderna 3rd dose Unknown 07/05/2021 Administered Influenza (Fluad), inactivated (IIV), subunit, adjuvanted, for intramuscular use IM Intramuscular 08/30/2024 Administered Vaccine given per Dr. Scott standing order Influenza Fluad (AIIV4) (single-dose syringe) Unknown 08/02/2014 Administered Influenza Fluad (AIIV4) (single-dose syringe) Unknown 06/12/2015 Administered Influenza Fluad (AIIV4) (single-dose syringe) Unknown 05/14/2016 Administered Influenza Fluad (AIIV4) (single-dose syringe) Unknown 07/23/2018 Administered Influenza Fluad (AIIV4) (single-dose syringe) Unknown 05/25/2019 Administered Influenza Fluad (AIIV4) (single-dose syringe) IM Intramuscular 06/30/2023 Administered Vaccine given p er Dr. Calle standing order Influenza Flucelvax (CCIIV4) (single-dose syringe) IM Intramuscular 05/30/2021 Administered vaccine administered per dr calle standing order Pneumococcal Conjugate PCV13 (Prevnar 13) Unknown 06/29/2019 Administered Shingles RZV (Shingrix) Unknown 01/04/2019 Administered Shingles RZV (Shingrix) Unknown 05/25/2019 Administered Shingles ZVL (Zostavax) Unknown 06/12/2015 Administered Tdap (Tetanus, Diphtheria and Acellular Pertussis) 7 yrs or older Unknown 12/12/2011 Administered Social History Tobacco Use: Social History Observation Description Date Details (start date - stop date) Never Smoker NA - NA Tobacco Use/Smoking Question Answer Notes Are you a nonsmoker Alcohol Screen (Audit C) Question Answer Notes Did you have a drink contain ing alcohol in the past year? Yes How often did you have a dri nk containing alcohol in the past year? 2 to 3 times a week (3 points) How many drinks did you have on a typical day when you were drinking in the past year? 1 or 2 drinks (0 point) How often did you have 6 or more drinks on one occasion in the past year? Never (0 point) Points 3 Interpretation Negative Sexual History Question Answer Notes Had sex in the past 12 months (vaginal, oral, or anal)? No Have you ever had a Sexually transmitted disease ? No Tobacco use other than smoking: Question Answer Notes Are you an other tobacco user? No Section Notes: Originally from [place]. Full-time resident of [place]. 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 Originally from [place]. Full-time resident of [place]. 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 Originally from [place]. Full-time resident of [place]. 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 Originally from [place]. Full-time resident of [place]. 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 Originally from [place]. Full-time resident of [place]. 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 Originally from [place]. Full-time resident of [place]. 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 Originally from [place]. Full-time resident of [place]. 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 Originally from [place]. Full-time resident of [place]. 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 Originally from [place]. Full-time resident of [place]. 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 Originally from [place]. Full-time resident of [place]. 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 Originally from [place]. Full-time resident of [place]. 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 Problems Problem Type SNOMED Code ICD Code Onset Dates Problem Status W/U Status Risk Notes Problem Mixed hyperlipidemia (765788241) Mixed hyperlipidemia (E78.2) Active confirmed stable on statin Problem Chronic systolic heart failure (004928526) Chronic systolic heart failure (I50.22) Active confirmed Problem Obstructive sleep apnea syndrome (62114848) TERRELL (obstructive sleep apnea) (G47.33) Active confirmed Problem Dilated cardiomyopathy (812912099) Dilated cardiomyopathy (I42.0) Active confirmed Problem Single episode of major depression in full remission (54002105) Depression, major, in remission (F32.5) Active confirmed Problem Hypertensive heart failure (31015019) Hypertensive heart disease with heart failure (I11.0) Active confirmed Cont HCTZ and amlodipine well controlled Problem Tinnitus of left ear (6474472679335) Tinnitus of left ear (H93.12) Inactive confirmed Problem Hypercoagulable state (56112186) Secondary hypercoagulable state (D68.69) Active confirmed Problem Lower urinary tract symptoms due to benign prostatic hypertrophy (16499196472232) Benign prostatic hyperplasia with lower urinary tract symptoms (N40.1) Active confirmed Problem Prediabetes (043503872) Prediabetes (R73.03) Active confirmed Problem Allergic rhinitis caused by pollen (41176846) Seasonal allergic rhinitis due to pollen (J30.1) Inactive confirmed Problem History of infectious disease (723280683) Hx of Clostridium difficile infection (Z86.19) Inactive confirmed Problem Age-related cataract (27103376) Age-related cataract of both eyes, unspecified age-related cataract type (H25.9) Inactive confirmed Problem History of thromboembolism of vein (601589512) History of DVT of lower extremity (Z86.718) Inactive confirmed Problem History of gastrointestinal disease (684599945) Hx of diverticulitis of colon (Z87.19) Inactive confirmed Problem Hearing loss (54951434) Bilateral hearing loss, unspecified hearing loss type (H91.93) Inactive confirmed Problem History of hemicolectomy (038941324) History of hemicolectomy (Z90.49) Inactive confirmed Problem Morbid obesity (822116857) Morbid obesity with body mass index (BMI) of 40.0 to 49.9 (E66.01) Active confirmed Problem Blood chemistry abnormal (161022358) Low serum testosterone (R79.89) Active confirmed Problem Uses home continuous positive airway pressure ventilation supply (finding) (4253575530457) Uses continuous positive airway pressure (CPAP) ventilation at home (Z99.89) Active confirmed Vital Signs Heart Rate 58 /min 10/10/2024 Tammie mAador on 10/10/2024 02:50:27 PM EST >Blood pressure under 140/90 Temperature 97.3 degrees Fahrenheit 10/10/2024 Abbey To 10/10/2024 02:50:27 PM EST >Blood pressure under 140/90 Respiratory Rate 14 /min 10/10/2024 Cristhian Amador 10/10/2024 02:50:27 PM EST >Blood pressure under 140/90 Oximetry 95 % 10/10/2024 Tammie Amador on 10/10/2024 02:50:27 PM EST >Blood pressure under 140/90 Blood pressure diastolic 78 mm Hg 10/10/2024 Riki proctorbessieAbbey 10/10/2024 02:50:27 PM EST >Blood pressure under 140/90 Height 69 inches 10/10/2024 Tammie Amador on 10/10/2024 02:50:27 PM EST >Blood pressure under 140/90 Blood pressure systolic 131 mm Hg 10/10/2024 Jana nguyenAbbey 10/10/2024 02:50:27 PM EST >Blood pressure under 140/90 Weight 342.8 lbs 10/10/2024 Tammie Amador on 10/10/2024 02:50:27 PM EST >Blood pressure under 140/90 BMI 50.62 kg/m2 10/10/2024 Tammie Amador on 10/10/2024 02:50:27 PM EST >Blood pressure under 140/90 Encounters Encounter Location Date Provider Diagnosis [place] [id number] [facility] [address] [place] [address] 07/20/2024 Nitish Alcocer Prediabetes R73.03 ; Hypertensive heart disease with heart failure I11.0 and Mixed hyperlipidemia E78.2 [facility] [address] [facility] [address] [place] [address] 08/30/2024 Nitihs Carlyn Hypertensive heart disease with heart failure I11.0 ; Mixed hyperlipidemia E78.2 ; Prediabetes R73.03 ; Chronic systolic heart failure I50.22 ; Dilated cardiomyopathy I42.0 ; Secondary hypercoagulable state D68.69 ; Personal history of thromboembolic disease Z86.718 ; TERRELL (obstructive sleep apnea) G47.33 ; Uses continuous positive airway pressure (CPAP) ventilation at home Z99.89 ; Low serum testosterone R79.89 ; Benign prostatic hyperplasia with lower urinary tract symptoms N40.1 ; Depression, major, in remission F32.5 ; Morbid obesity with body mass index (BMI) of 40.0 to 49.9 E66.01 ; Body mass index [BMI] 45.0-49.9, adult Z68.42 ; Encounter for screening for cardiovascular disorders Z13.6 ; Screening for prostate cancer Z12.5 ; Screening for colon cancer Z12.11 ; Screening for cardiovascular condition Z13.6 ; Advanced directives, counseling/discussion Z71.89 ; Need for vaccination for strep pneumoniae + influenza Z23 ; Encounter for immunization Z23 and Arthritis of knee, right M17.11 [facility] [address] [place] [phone] 01/02/2025 Niitsh Alcocer Hypertensive heart disease with heart failure I11.0 ; TERRELL (obstructive sleep apnea) G47.33 ; Mixed hyperlipidemia E78.2 and Screening for prostate cancer Z12.5 [facility] [address] [place] [phone] 10/10/2024 Nitish Alcocer Preop cardiovascular exam Z01.810 ; Hypertensive heart disease with heart failure I11.0 ; Mixed hyperlipidemia E78.2 ; Prediabetes R73.03 ; Chronic systolic heart failure I50.22 ; Dilated cardiomyopathy I42.0 ; Secondary hypercoagulable state D68.69 ; Personal history of thromboembolic disease Z86.718 ; TERRELL (obstructive sleep apnea) G47.33 ; Uses continuous positive airway pressure (CPAP) ventilation at home Z99.89 ; Low serum testosterone R79.89 ; Benign prostatic hyperplasia with lower urinary tract symptoms N40.1 ; Depression, major, in remission F32.5 and Morbid obesity with body mass index (BMI) of 40.0 to 49.9 E66.01 [facility] [address] [place] [phone] 07/27/2024 Nitish Wandahedi [facility] [address] [address] 08/11/2024 Nitish Wandahedi [facility] [address] [place] [phone] 09/02/2024 Nitish Zahedi [facility] [address] [place] [phone] 01/02/2025 Nitish Zahedi [facility] [address] [place] [phone] 01/09/2025 Nitish Zahedi [facility] [address] [place] [phone] 01/25/2025 Nitish Zahedi [facility] [address] [place] [phone] 01/25/2025 [facility]itsih [facility] [address] [place] [address] 01/27/2025 Nitish Yanceyi [facility] [address] [place] [address] 02/01/2025 Nitish Alcocer [facility] [address] [place] [address] 02/27/2025 Nitish Alcocer Assessments Encounter Date Diagnosis (ICD Code) Assessment Notes Treatment Notes Treatment Clinical Notes Section Notes 08/30/2024 Hypertensive heart disease with heart failure (ICD-10 - I11.0) Cont HCTZ and amlodipine well controlled Continue present management with amlodipine and valsartan well controlled. Urine for microalbumin negative 07/20/2024 Prediabetes (ICD-10 - R73.03) 10/10/2024 Preop cardiovascular exam (ICD-10 - Z01.810) Patient was clinically cleared for cataract. 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 Baseline EKG showed sinus rhythm at the rate of 58/min. No acute T or ST changes. Old Q wave in the septal area. 01/02/2025 Hypertensive heart disease with heart failure (ICD-10 - I11.0) 01/02/2025 TERRELL (obstructive sleep apnea) (ICD-10 - G47.33) 10/10/2024 Hypertensive heart disease with heart failure (ICD-10 - I11.0) Cont HCTZ and amlodipine well controlled Continue present management with amlodipine and valsartan well controlled. Urine for microalbumin negative 07/20/2024 Hypertensive heart disease with heart failure (ICD-10 - I11.0) 08/30/2024 Mixed hyperlipidemia (ICD-10 - E78.2) stable on statin Continue present management with atorvastatin Well-controlled. LDL 77 08/30/2024 Prediabetes (ICD-10 - R73.03) None concentrated sugar diet daily exercise weight loss discussed in detail Decrease Ozempic to 0.5 mg weekly New diagnosis. Worsening with recent weight gain A1c 6.7 (6.2) 07/20/2024 Mixed hyperlipidemia (ICD-10 - E78.2) 10/10/2024 Mixed hyperlipidemia (ICD-10 - E78.2) stable on statin Continue present management with atorvastatin Well-controlled. LDL 77 01/02/2025 Mixed hyperlipidemia (ICD-10 - E78.2) 01/02/2025 Screening for prostate cancer (ICD-10 - Z12.5) 10/10/2024 Prediabetes (ICD-10 - R73.03) None concentrated sugar diet daily exercise weight loss discussed in detail Decrease Ozempic to 0.5 mg weekly New diagnosis. Worsening with recent weight gain A1c 6.7 (6.2) 08/30/2024 Chronic systolic heart failure (ICD-10 - I50.22) We will continue to follow clinically and with echo every 2 years Unchanged. Asymptomatic. Incidental finding on screening echocardiogram 08/30/2024 Dilated cardiomyopathy (ICD-10 - I42.0) Under care of of [employer] hand Dr. Arthur Monitor with echocardiograms every 2 to 3 years by cardiology Unchanged. Asymptomatic incidental finding on screening echocardiogram 2D echo 10/01/2020 showed mild diastolic dysfunction. Mild dilated cardiomyopathy. Aortic sclerosis without stenosis 10/10/2024 Chronic systolic heart failure (ICD-10 - I50.22) We will continue to follow clinically and with echo every 2 years Unchanged. Asymptomatic. 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 Arthur Monitor with echocardiograms every 2 to 3 years by cardiology Unchanged. Asymptomatic incidental finding on screening echocardiogram 2D echo 10/01/2020 showed mild diastolic dysfunction. Mild dilated cardiomyopathy. Aortic sclerosis without stenosis 08/30/2024 Secondary hypercoagulable state (ICD-10 - D68.69) Recommend to hold off Clomid and anastrozole Referral to hematology oncology Recommend to hold off Clomid and anastrozole Referral to hematology oncology New . Unprovoked. Left lower extremity DVT. This is an second DVT in 2 years with patient with previously not known history of coagulopathy Clomid and anastrozole recently prescribed by urologist for low testosterone Rule out underlying malignancy Last CT of the chest abdomen pelvis and colonoscopy reviewed New . Unprovoked. Left lower extremity DVT. This is an second DVT in 2 years with patient with previously not known history of coagulopathy Clomid and anastrozole recently prescribed by urologist for low testosterone Rule out underlying malignancy Last CT of the chest abdomen pelvis and colonoscopy reviewed 08/30/2024 Personal history of thromboembolic disease (ICD-10 - Z86.718) Unchanged. 10/10/2024 Secondary hypercoagulable state (ICD-10 - D68.69) Recommend to hold off Clomid and anastrozole Referral to hematology oncology Recommend to hold off Clomid and anastrozole Referral to hematology oncology New . Unprovoked. Left lower extremity DVT. This is an second DVT in 2 years with patient with previously not known history of coagulopathy Clomid and anastrozole recently prescribed by urologist for low testosterone Rule out underlying malignancy Last CT of the chest abdomen pelvis and colonoscopy reviewed New . Unprovoked. Left lower extremity DVT. This is an second DVT in 2 years with patient with previously not known history of coagulopathy Clomid and anastrozole recently prescribed by urologist for low testosterone Rule out underlying malignancy Last CT of the chest abdomen pelvis and colonoscopy reviewed 10/10/2024 Personal history of thromboembolic disease (ICD-10 - Z86.718) Unchanged. 08/30/2024 TERRELL (obstructive sleep apnea) (ICD-10 - G47.33) Referral for sleep study Unchanged. Diagnosis of TERRELL 20 years ago. Had not have any recent evaluation and recalibration of his machine. 08/30/2024 Uses continuous positive airway pressure (CPAP) ventilation at home (ICD-10 - Z99.89) Referral for sleep study and recalibration of CPAP Cleaning and maintenance of CPAP machine tubing emphasized Unchanged. Patient has a CPAP machine 10/10/2024 TERRELL (obstructive sleep apnea) (ICD-10 - G47.33) Referral for sleep study Unchanged. Diagnosis of TERRELL 20 years ago. Had not have any recent evaluation and recalibration of his machine. 10/10/2024 Uses continuous positive airway pressure (CPAP) ventilation at home (ICD-10 - Z99.89) Referral for sleep study and recalibration of CPAP Cleaning and maintenance of CPAP machine tubing emphasized Unchanged. Patient has a CPAP machine 08/30/2024 Low serum testosterone (ICD-10 - R79.89) Of Clomid and anastrozole-(due to increased risk of thromboembolic disease) New diagnosis. Total testosterone and free testosterone low (3.6) associated with progressive weight gain, depression, low sex drive-he was started on Clomid and anastrozole by urologist a month ago 08/30/2024 Benign prostatic hyperplasia with lower urinary tract symptoms (ICD-10 - N40.1) Continue tamsulosin Referral to urology Unchanged. Clinically asymptomatic with treatment 10/10/2024 Low serum testosterone (ICD-10 - R79.89) Of Clomid and anastrozole-(due to increased risk of thromboembolic disease) New diagnosis. Total testosterone and free testosterone low (3.6) associated with progressive weight gain, depression, low sex drive-he was started on Clomid and anastrozole by urologist a month ago 10/10/2024 Benign prostatic hyperplasia with lower urinary tract symptoms (ICD-10 - N40.1) Continue tamsulosin Referral to urology Unchanged. Clinically asymptomatic with treatment 08/30/2024 Depression, major, in remission (ICD-10 - F32.5) Continue present management with citalopram Overall very well controlled 08/30/2024 Morbid obesity with body mass index (BMI) of 40.0 to 49.9 (ICD-10 - E66.01) Diet exercise and weight loss highly discussed and highly recommended Patient was referred to wellness center for walk group and to the lecture about healthy eating starting this week Unchanged. Had a recent weight loss a few pounds. Patient with morbid obesity associated with comorbidities such as high blood pressure, TERRELL, OA etc. Discussed the Ozempic and GLP-1 class for weight loss. Patient not candidate 10/10/2024 Depression, major, in remission (ICD-10 - F32.5) Continue present management with citalopram Overall very well controlled 10/10/2024 Morbid obesity with body mass index (BMI) of 40.0 to 49.9 (ICD-10 - E66.01) Diet exercise and weight loss highly discussed and highly recommended Patient was referred to wellness center for walk group and to the lecture about healthy eating starting this week Unchanged. Had a recent weight loss a few pounds. Patient with morbid obesity associated with comorbidities such as high blood pressure, TERRELL, OA etc. Discussed the Ozempic and GLP-1 class for weight loss. Patient not candidate 08/30/2024 Body mass index [BMI] 45.0-49.9, adult (ICD-10 - Z68.42) Resume Ozempic 0.5 mg Increased. Weight gain of 15 pounds since last office visit BMI 51 (49) 08/30/2024 Encounter for screening for cardiovascular disorders (ICD-10 - Z13.6) [employer]flo - 06/05/2022 Normal ( repeat 05/2024 )[employer] - 01/07/2024 Normal ( repeat 2025 ) 08/30/2024 Screening for prostate cancer (ICD-10 - Z12.5) Under care of urology PSA 2022 normal. 08/30/2024 Screening for colon cancer (ICD-10 - Z12.11) Last colonoscopy 2018 . Patient is due for repeat in 5 years. Colonoscopy 2023 was scheduled for 11/2023 but canceled due to hospitalization for PE 08/30/2024 Screening for cardiovascular condition (ICD-10 - Z13.6) [employer] -01/07/2024 normal ( repeat 05/2026 ) 2D [id number] l-[id number] scheduled through cardiology Dr. Arthur 08/30/2024 Advanced directives, counseling/discuss ion (ICD-10 - Z71.89) Patient has a copy of 5 wishes to be completed Patient was referred to [facility] website/advanced directives Advanced directive and living will was discussed. 08/30/2024 Need for vaccination for strep pneumoniae + influenza (ICD-10 - Z23) 08/30/2024 Encounter for immunization (ICD-10 - Z23) 08/30/2024 Arthritis of knee, right (ICD-10 - M17.11) X-ray of the right knee-declined Referral to orthopedist Aleve 220 mg 2 tablets twice a day for 10 days with food Home exercise for ROM of the knee-handout provided Acute exacerbation of chronic osteoarthritis pain of the right knee Plan Of Treatment Pending Test Test Name Order Date TSH 09/25/2020 Future Test Test Name Order Date Screening Colonoscopy 09/01/2023 XR RIGHT KNEE 3 VIEWS 08/30/2024 Insurance Providers Payer Name Payer Address Payer Phone Subscriber Number Group Number Insured Name Patient Relationship to Insured Coverage Start Date Coverage End Date [employer] MCR ADV HMO [address] [address] [place] [address] [id number] ANTIONE JONES Self - patient is the insured Medical (General) History Medical History History ICD Code hypertension adenomatous colon polyp - 12/06/2016 depression allergic rhinitis COLONOSCOPY - 2016 due in 2021; diverticulitis - 2009 Hard of hearing Impaired fasting glucose obesity Obstructive sleep apnea Tinnitus of the lest ear Surgical History Surgery Date(Month/Year) cervical fusion 07/2009 Partial (8 inches) colonectomy/complicat ed DD 2002 R shoulder rotator cuff 07/2015 R Rotator cuff repair 11/2017 Vasectomy Hospitalization History Reason Date(Month/Year) Complicated diverticular disease/fistula /C. difficile 2009
[2025-06-24 15:59] VITALS: BP 129/67; PULSE 74; RESP 16; TEMP 37.4; O2SAT 94; BMI 49.0
--- NOTE | 2025-06-24 16:09 | CRLHL7_ITS ---
For Patients: As a result of the 21st Century Cures Act, medical imaging exams and procedure reports are released immediately into your electronic medical record. You may view this report before your referring provider. If you have questions, please contact your health care provider. INDICATION: Left lower extremity pain. History of deep venous thrombosis. The patient is on Eliquis. COMPARISON: None. TECHNIQUE: A compression venous ultrasound exam was performed of the left lower extremity using nolan-scale imaging, color Doppler and spectral Doppler analysis. FINDINGS: Sonographic imaging of the left lower extremity demonstrates normal compressibility and color Doppler venous blood flow within the common femoral vein, deep femoral vein, and the proximal greater saphenous vein. Within the thigh, the femoral vein is patent and compressible. At a lower level, the popliteal and posterior tibial veins also show normal compressibility and color Doppler venous blood flow. Limited imaging of the contralateral groin demonstrates a normal spectral waveform and color Doppler venous blood flow within the right common femoral vein. IMPRESSION: Normal venous ultrasound exam. No evidence of deep vein thrombosis within the left lower extremity. Dictated by Robert Pride MD @ 06/24/2025 5:17:25 PM (Electronically Signed)
--- NOTE | 2025-06-24 16:09 | ED.GENADULT ---
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 He 1st had a DVT while traveling in his car from [place] to [place]. He was treated with a course of anticoagulated and then after having a recurrent DVT was taken off. He then had PE requiring hospitalization and a repeat course of anticoagulation. He then had a 2nd PE that occurred 5 days after he completed his course of anticoagulation. Since then he has been started back on Eliquis and plan is for him to be on lifelong anticoagulation. To the patient's knowledge he is not aware of any hypercoagulable workup or any clear trigger for his blood clots. He has been therapeutically and consistently taking his Eliquis 5 mg b.i.d.. About 3 weeks ago he travel by plane from [place] to [place] to visit his family in for a . About 3 days after that plane trip he woke with the throbbing pain in his left knee. No known injury or twisting or other injury to it. He initially was seen at an orthopedic urgent care in the [facility] ([facility]) and had x-rays that showed some arthritis in his knee and underwent a cortisone injection into the knee. It is not really gotten better any still having throbbing plane. He has pain mostly in the popliteal fossa of his knee a little bit into the back of the calf. It is fairly reminiscent of when he had his DVT a couple of years ago. He has plans to fly back to [place] in a couple of days. He is concerned that he might have a recurrent DVT so came to the ER today to get an ultrasound. He has not noticed any redness of the leg. No fever chills or other infection symptoms. He does have some chronic edema in his legs, left more so than right. If this is not changed from baseline. No pain in his hip. No low back pain. No known injury. He is not having any chest pain or shortness of breath. Related Data Home Medications ?Medication ?Instructions ?Recorded ?Confirmed amlodipine 10 mg tablet 10 mg PO DAILY 06/24/25 06/24/25 apixaban 5 mg tablet (Eliquis) 5 mg PO BID 06/24/25 06/24/25 atorvastatin 10 mg tablet 10 mg PO DAILY 06/24/25 06/24/25 citalopram 20 mg tablet 20 mg PO DAILY 06/24/25 06/24/25 ranolazine 500 mg tablet,extended 500 mg PO BID 06/24/25 06/24/25 release,12 hr tamsulosin 0.4 mg capsule 0.4 mg PO DAILY 06/24/25 06/24/25 valsartan 160 mg tablet 160 mg PO BID 06/24/25 06/24/25 Allergies Allergy/AdvReac Type Severity Reaction Status Date / Time No Known Drug Allergies Allergy Verified 06/24/25 15:54 Exam Narrative: Exam Narrative: Constitutional: Appears well-developed and heavyset. Robust appearing.Alert. Conversant. Non toxic. HENT: Head: Atraumatic. Nose: Nose normal. Mouth/Throat: Oral mucosa is clear and moist. no trismus. Eyes: Conjunctivae normal. EOM normal. Pupils equal, round, and reactive to light. No scleral icterus. Neck: Normal range of motion. Neck supple. No tracheal deviation present. Cardiovascular: Normal rate, regular rhythm. No gallop. No friction rub. No murmur heard. Symmetric radial artery pulses Pulmonary/Chest: Effort normal. No stridor. No respiratory distress. No wheezes. No rales. No rhonchi . No tenderness. Abdominal: Soft. No distension. No mass. No tenderness. No rebound. No guarding. Musculoskeletal: RUE: Normal range of motion. No tenderness. No deformity LUE: Normal range of motion. No tenderness. No deformity RLE: Normal range of motion. 1+ edema from the knee down to the ankle. No tenderness. No deformity LLE: Normal range of motion in his hip, knee, ankle. No tenderness of his thigh, quad, hamstring. Normal inspection of the knee. No redness or warmth. He is mildly tender in the popliteal fossa but no definite swelling or fluctuance there. No bony crepitus. He has mild tenderness in the proximal portion of the right gastrocnemius but I do not feel any palpable cord. There is no fluctuance or abscess. No erythema. No bruising. 1+ edema from the knee down to the ankle. No deformity Neurological: Alert and oriented to person, place, and time. Normal strength. CN II-VII intact. No sensory deficit. GCS eye subscore is 4. GCS verbal subscore is 5. GCS motor subscore is 6. Normal coordination Skin: Skin is warm and dry. No rash noted. No pallor. Normal capillary refill. Psychiatric: Normal mood. Normal affect. Const: Vital Signs, click to edit/add: Vital Signs - 24 hr 06/24/25 15:59 Temperature 99.3 F Pulse Rate [Pulse Oximeter] 74 Respiratory Rate 16 Blood Pressure [Ri ght Upper Arm] 129/67 Pulse Oximetry 94 Oxygen Delivery Me thod Room Air Course Vital Signs Vital signs: Initial Vital Signs Temperature 99.3 F 06/24/25 15:59 Temperature Source Temporal Artery Scan 06/24/25 15:59 Pulse Rate 74 06/24/25 15:59 Respiratory Rate 16 06/24/25 15:59 Blood Pressure 129/67 06/24/25 15:59 Blood Pressure Mean 87 06/24/25 15:59 Blood Pressure Position Sitting 06/24/25 15:59 Pulse Oximetry 94 06/24/25 15:59 Oxygen Delivery Method Room Air 06/24/25 15:59 Vital Signs Temperature 99.3 F 06/24/25 15:59 Pulse Rate 74 06/24/25 15:59 Respiratory Rate 16 06/24/25 15:59 Blood Pressure 129/67 06/24/25 15:59 Pulse Oximetry 94 06/24/25 15:59 Oxygen Delivery Method Room Air 06/24/25 15:59 Temperature 99.3 F 06/24/25 15:59 Pulse Rate 74 06/24/25 15:59 Respiratory Rate 16 06/24/25 15:59 Blood Pressure 129/67 06/24/25 15:59 Pulse Oximetry 94 06/24/25 15:59 Oxygen Delivery Method Room Air 06/24/25 15:59 Medical Decision Making MDM Narrative Medical decision making narrative: Very pleasant 69-year-old gentleman presenting to the ER today with concern for pain in his left knee and left proximal posterior calf. He has a history of previous DVT in 2 previous PEs and has recently been on Eliquis. He did have a plane flight when this pain started a couple of weeks ago. He is concerned that he might have another DVT that is breaking through his Eliquis therapy so came to the ER to get an ultrasound to make sure he was okay to fly home. Fortunately DVT ultrasound is negative for DVT here in the ER today. He is not having any symptoms of PE. At this point I do not think he needs CT scan of his chest for CT runoff of his legs. Differential for his knee and leg pain is broad. Consider musculoskeletal. He has already had x-rays done at the orthopedic urgent care and a cortisone shot. He has no history of trauma. I do not think he needs repeat x-rays today. He does not have any redness or warmth of the knee, popliteal fossa, calf that would suggest a superimposed cellulitis. Consider Valerio cyst but this is not visualized on ultrasound. Would recommend follow-up with his doctors at home and [facility] to consider knee MRI if pain consists. Would recommend that he continue on Eliquis at this time. Discussed that he needs to follow-up for repeat ultrasound if symptoms are not improving. Precautions for return to the ER reviewed. Questions answered Imaging Data US LLE venous: Attestation: I have reviewed the pertinent imaging results. Radiologist's impression: IMPRESSION: Normal venous ultrasound exam. No evidence of deep vein thrombosis within the left lower extremity. Discharge Plan Discharge Clinical Impression: Acute pain of left lower extremity Patient Disposition: Home, Self-Care Condition: Stable Instructions: Leg Pain (ED) Additional Instructions: As we discussed, your ultrasound looks good today. No sign of a blood clot in your leg. At this point the cause of your leg and knee pain is not clear. I think you are safe to fly home. please continue on your Eliquis and your other medications. If your pain is not resolving within the next 5-7 days, please recheck with your doctor at home in [place] If you notice any worsening symptoms especially worsening pain or swelling in her leg, new redness or warmth of the leg, fever or chills, chest pain or trouble breathing, please come back to the emergency room right away. Prescriptions: No Action atorvastatin 10 mg tablet 10 mg PO DAILY citalopram 20 mg tablet 20 mg PO DAILY tamsulosin 0.4 mg capsule 0.4 mg PO DAILY amlodipine 10 mg tablet 10 mg PO DAILY valsartan 160 mg tablet 160 mg PO BID ranolazine 500 mg tablet extended release 12 hr 500 mg PO BID Eliquis 5 mg tablet 5 mg PO BID Follow Up/Referrals: Markus Vela MD [Staff Physician, Family Practice] Stand Alone Forms: MyHealth Info Instructions
== END 2025-06-24 17:44 | disposition home or self-care (01) ==
PROVIDERS: Emergency Provider Emergency Medicine
DX: M79.662 Pain in left lower leg (principal)
CPT/HCPCS: 93971; 99282; 99283